=== PATIENT | female | born 1970 | race Caucasian/White ===

== ENCOUNTER 2019-03-06 14:43 | Emergency (ER) | payer BC ==
[~2019-03-06] VITALS: Ht 172.7 cm; Wt 81.8 kg
[2019-03-06 14:52] VITALS: BP 145/87
[2019-03-06] MEDS ORDERED: traMADol 50MG tablet PO ONE (15:50)
[2019-03-06] MEDS ORDERED: LIDOcaine 1% w/epiNEPHrine 1:200,000 30ml vial IM ONE (15:50)
[2019-03-06] MEDS ORDERED: AMOX-580 PO (16:28)
[2019-03-06] MEDS ORDERED: HYDR-3965 PO (16:28)
[2019-03-06] MEDS ORDERED: SULF1TAB49 PO (16:28)
== END 2019-03-06 16:58 | disposition home or self-care (01) ==
LOC: ER 14:45
DX: S68.124A Partial traumatic metacarpophalangeal amputation of right ring finger, initial encounter (principal); L08.9 Local infection of the skin and subcutaneous tissue, unspecified; Z79.899 Other long term (current) drug therapy; W23.0XXA Caught, crushed, jammed, or pinched between moving objects, initial encounter; Y93.89 Activity, other specified; Y92.89 Other specified places as the place of occurrence of the external cause; Y99.8 Other external cause status
CPT/HCPCS: 64450; 73140; 99284